=== PATIENT | female | born 1990 | race African-American/Black ===

== ENCOUNTER 2018-11-21 23:35 | Emergency (ER) | payer SELFPAY ==
[2018-11-21 23:54] LABS: Bilirubin Negative (Negative); Blood, Urine Negative (Negative); Clarity Clear (Clear); Glucose, Urine (Dipstick) Normal (Negative); Leukocyte Negative Leu/uL (Negative); Nitrite Negative (Negative); Protein, Urine (Dipstick) Negative (Neg-Trace); RBC/HPF None Seen HPF (0-3); Urobilinogen Normal mg/dL (Less than 2); WBC/HPF 0-3 HPF (0-3)
[2018-11-21 23:56] LABS: Pregnancy Test - Urine (BHCG) Negative (Negative); Pregu Control Background? CLEAR/WHITE (CLR/WHITE); Pregu Control Bar Appear? YES (CONTROL BAR); Specific Gravity 1.001 (1.002-1.036)
[2018-11-22] MEDS ORDERED: Ondansetron ODT 4 MG TAB ONE (00:02)
== END 2018-11-22 00:51 | disposition home or self-care (01) ==
LOC: ERS 23:35
DX: K59.00 Constipation, unspecified (principal); R11.0 Nausea; J45.909 Unspecified asthma, uncomplicated
CPT/HCPCS: 81003; 81025; 99283; Q0162

== ENCOUNTER 2019-05-22 14:45 | Emergency (ER) | payer OTHER, SELFPAY ==
--- NOTE | 2019-05-22 15:31 | RAD ---
EXAM: Chest 2 views: HISTORY: Cough and fever COMPARISON: 06/21/2014 FINDINGS: There is a normal-sized cardiomediastinal silhouette. There is no evidence of consolidation, mass, or pleural effusion. There is stable mild scoliotic curvature the spine. IMPRESSION: No evidence of acute cardiopulmonary disease
== END 2019-05-22 15:59 | disposition home or self-care (01) ==
LOC: ERS 14:45
DX: J06.9 Acute upper respiratory infection, unspecified (principal); H10.9 Unspecified conjunctivitis; J45.909 Unspecified asthma, uncomplicated
CPT/HCPCS: 71046